=== PATIENT | male | born 1955 | race Caucasian/White ===

== ENCOUNTER 2021-08-19 10:50 | Emergency (ER) | payer BC ==
[~2021-08-19] VITALS: Ht 193 cm; Wt 120.2 kg
[2021-08-19] MEDS ORDERED: PROTONIX 20 MG20 MG PO (11:50)
[2021-08-19 12:46] LABS: CALCIUM 8.5 mg/dL (8.5-10.1); POTASSIUM 4.2 mmol/L (3.5-5.1)
[2021-08-19 13:10] LABS: URINE CLARITY CLEAR; URINE COLOR YELLOW
[2021-08-19 13:11] LABS: URINE BILIRUBIN NEGATIVE (Negative); URINE GLUCOSE-RANDOM NEGATIVE (Negative); URINE KETONES TRACE (Negative); URINE PROTEIN NEGATIVE (Negative)
[2021-08-19 13:12] LABS: URINE BLOOD NEGATIVE (Negative); URINE LEUKOCYTES-REFLEX NEGATIVE (Negative); URINE NITRITE-REFLEX NEGATIVE (Negative); URINE UROBILINOGEN 0.2 E.U./dl (0.2-1.0)
[2021-08-19 13:23] LABS: HEMOGLOBIN 16.2 gm/dL (14.0-18.0); MCH 30.4 pg (26.0-34.0); MCHC 33.7 g/dL (28.0-37.0); MCV 90.2 fL (80.0-100.0); MPV 9.8 fl. (7.2-11.1); RBC 5.32 mil/uL (4.50-6.00); RDW-CV 14.7 % (10.5-14.5); WBC 4.6 thou/uL (4.0-11.0)
[2021-08-19 13:35] LABS: URINE SPECIFIC GRAVITY 1.015 (1.005-1.030)
[2021-08-19] MEDS ORDERED: AMBIEN 5 MG TABL5 M1 PO (13:58)
[2021-08-19] MEDS ORDERED: ECONAZOLE NITRA30 GM TOP (13:58)
[2021-08-19] MEDS ORDERED: PEPCID20 MG PO (13:58)
[2021-08-19] MEDS ORDERED: TRIAMCINOLONE A80 G2 TOP (13:58)
[2021-08-19 14:05] VITALS: BP 119/67
--- NOTE | 2021-08-19 14:41 | EKG ---
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[id number] Requested By: Christine Monterroso Order Number: [id number] MD: Poli Chi Measurements Intervals [place] Rate: 86 P: 28 ME: 157 QRS: -27 QRSD: 84 T: 57 QT: 374 QTc: 448 Interpretive Statements Sinus rhythm Borderline left axis deviation Abnormal R-wave progression, early transition No previous ECG available for comparison Electronically Signed On 08-19-2021 14:41:42 TELEPHONE APPOINTMENT CLERK by Poli Chi [email or web address] <ELECTRONICALLY SIGNED> By: Poli Chi MD, [facility] 08/19/21 1441 1223 1223 Poli Chi MD, [facility] /EPI
== END 2021-08-19 14:05 | disposition home or self-care (01) ==
LOC: M.ERS 10:50
PROVIDERS: Physician Assistant
DX: U07.1 COVID-19 (principal); G47.00 Insomnia, unspecified; R21 Rash and other nonspecific skin eruption; K21.9 Gastro-esophageal reflux disease without esophagitis; R06.02 Shortness of breath; Z79.899 Other long term (current) drug therapy